=== PATIENT | female | born 1990 | race Caucasian/White ===

== ENCOUNTER 2017-06-23 17:59 | Inpatient (IN) | payer MEDICAID ==
--- NOTE | 2017-06-23 18:47 | HP ---
General Information - General Information Maternal Age: 26 Grav: 1 Para: 0 SAB: 0 IEA: 0 Estimated Due Date: 06/24/17 Determined By: Early Ultrasound Gestational Age in Weeks and Days: 39 Weeks and 6 Days Maternal Blood Type and Rh: O Positive - Results this Serology/RPR Result: Non-Reactive Rubella Result: Immune HBsAg Result: Negative HIV Result: Negative GBS Culture Result: Negative Past Medical History Pertinent Past Medical History: Non-Contributory Past Medical History Comment: hx UTIs Pertinent Past Surgical History: None Family History Comment: high chol., HTN, DVT(no known clotting disorder) - Antepartal Records Antepartal Records: Reviewed, Complicated by: - anemia Exam Allergies/Adverse Reactions: Allergies No Known Allergies Allergy (Verified 06/23/17 18:26) - Measurements Height: 5 ft 2 in Weight: 157 lb Weight in lbs: 157 Body Mass Index (BMI): 28.7 Pre- Weight: 137 lb Weight Gained This : 20 lbs and 0 ozs
[2017-06-23] MEDS ORDERED: Ondansetron ODT TAB* 4 MG PO PRN (20:20)
[2017-06-23 21:15] LABS: Hematocrit 36 % (35-47); Hemoglobin 12.3 g/dl (12.0-16.0); Mean Corpuscular HGB Conc 34 g/dl (31-36); Mean Corpuscular Hemoglobin 31 pg (27-31); Mean Corpuscular Volume 91 fL (80-97); Mean Platelet Volume 9 um3 (7.4-10.4); Platelet Count 209 10^3/ul (150-450); Red Blood Count 3.97 10^6/ul (4.0-5.4); Red Cell Distribution Width 15 % (10.5-15); White Blood Count 26.4 10^3/ul (3.5-10.8)
[2017-06-23 21:22] LABS: ABS Basophils 0.1 10^3/ul (0-0.2); ABS Eosinophils 0 10^3/ul (0-0.6); ABS Lymphocytes 1.7 10^3/ul (1.0-4.8); ABS Monocytes 1.7 10^3/ul (0-0.8); ABS Neutrophils 22.9 10^3/ul (1.5-7.7); ABS Nucleated RBC 0 10^3/ul; Eosinophil % 0 % (0-6); Lymphocyte % 6.5 % (25-47); Nucleated Red Blood Cells % 0.1
[2017-06-23] MEDS ORDERED: Promethazine INJ(RESTRICTED)* 25 MG/ML 1 ML VIAL IV ONE (21:46)
[2017-06-23] MEDS ORDERED: Nalbuphine* 20 MG/ML 1 ML VIAL IV ONE (21:46)
[2017-06-24] MEDS ORDERED: OBEPIDURAL* 250 ML EPIDURAL ONE (05:20)
[2017-06-24] MEDS ORDERED: fentaNYL* 50 MCG/ML 2 ML VIAL (100 MCG VIAL) ONE (05:32)
[2017-06-24] MEDS ORDERED: Famotidine TAB* 20 MG PO PRN (06:14)
[2017-06-24] MEDS ORDERED: Sodium Citrate/Citric Acid* 15 ML UDC PO PRN (06:14)
[2017-06-24] MEDS ORDERED: Phenylephrine IV* 40 MCG/ML 10 ML SYRINGE IV PUSH PRN ×2 (06:14)
[2017-06-24] MEDS ORDERED: OBEPIDURAL* 250 ML EPIDURAL SCH (07:00)
[2017-06-24] MEDS ORDERED: Oxytocin in LR* 20 UNITS/1,000 ML BAG IVPB ONE (07:59)
[2017-06-24] MEDS ORDERED: Misoprostol TAB* 200 MCG PR ONE (09:41)
[2017-06-24] MEDS ORDERED: Glycerin ADULT SUPP PR PRN (09:41)
[2017-06-24] MEDS ORDERED: Oxytocin in LR* 20 UNITS/1,000 ML BAG IVPB SCH (10:00)
[2017-06-24] MEDS: Ibuprofen TAB* 600 MG PO PRN ×3 (10:09→23:57)
[2017-06-24] MEDS ORDERED: Ammonia Inhalant* 1 EA AMP ONE (10:45)
[2017-06-24 13:29] LABS: Urine Appearance Cloudy; Urine Blood 2+ (Negative); Urine Color Yellow; Urine Ketones 2+ (Negative); Urine Protein 1+(30 mg/dL) (Negative); Urine Specific Gravity 1.015 (1.010-1.030); Urine Urobilinogen Negative (Negative)
[2017-06-24] MEDS: Witch Hazel PAD* JAR TOPICAL PRN (14:28)
[2017-06-24] MEDS: Dibucaine 1% 28.35 GM TUBE PR PRN (14:28)
[2017-06-24] MEDS: Docusate CAP* 100 MG PO SCH (14:28)
[2017-06-24] MEDS: Simethicone TAB* 80 MG TAB.CHEW PO SCH (20:11)
[2017-06-24] MEDS: Acetaminophen TAB* 325 MG PO PRN ×2 (20:11→23:57)
[2017-06-25] MEDS: Ibuprofen TAB* 600 MG PO PRN ×3 (06:35→19:09)
[2017-06-25] MEDS: Docusate CAP* 100 MG PO SCH ×2 (06:36→08:49)
[2017-06-25 08:20] LABS: Hematocrit 25 % (35-47); Hemoglobin 8.5 g/dl (12.0-16.0); Mean Corpuscular HGB Conc 34 g/dl (31-36); Mean Corpuscular Hemoglobin 31 pg (27-31); Mean Corpuscular Volume 92 fL (80-97); Mean Platelet Volume 8 um3 (7.4-10.4); Platelet Count 184 10^3/ul (150-450); Red Blood Count 2.71 10^6/ul (4.0-5.4); Red Cell Distribution Width 15 % (10.5-15); White Blood Count 23.4 10^3/ul (3.5-10.8)
[2017-06-25] MEDS: Ferrous Gluconate TAB* 324 MG TAB PO SCH ×2 (08:49→19:08)
[2017-06-25 08:51] LABS: ABS Basophils 0.1 10^3/ul (0-0.2); ABS Eosinophils 0 10^3/ul (0-0.6); ABS Lymphocytes 2.2 10^3/ul (1.0-4.8); ABS Monocytes 1.3 10^3/ul (0-0.8); ABS Neutrophils 19.8 10^3/ul (1.5-7.7)
[2017-06-25 08:56] LABS: Monocytes % 4 % (0-7)
[2017-06-25] MEDS: Acetaminophen TAB* 325 MG PO PRN (10:46)
[2017-06-25] MEDS: Simethicone TAB* 80 MG TAB.CHEW PO SCH (19:09)
[2017-06-26] MEDS: Ibuprofen TAB* 600 MG PO PRN ×2 (04:16→11:36)
[2017-06-26 07:54] VITALS: BP 109/71
[2017-06-26] MEDS: Ferrous Gluconate TAB* 324 MG TAB PO SCH (08:41)
[2017-06-26] MEDS: Docusate CAP* 100 MG PO SCH (08:41)
[2017-06-26] MEDS: Simethicone TAB* 80 MG TAB.CHEW PO SCH (10:40)
[2017-06-26] MEDS: Witch Hazel PAD* JAR TOPICAL PRN (11:36)
[2017-06-26] MEDS: Dibucaine 1% 28.35 GM TUBE PR PRN (11:36)
== END 2017-06-26 16:08 | disposition home or self-care (01) | DRG 560 ==
LOC: MCHOBOUT 17:59 → MCHOB 18:42
PROVIDERS: ADMIT Midwife; ATTEND Midwife
PROC: 10E0XZZ Delivery of Products of Conception, External Approach (ICD-10-PCS; principal; 2017-06-24)
PROC: 10907ZC Drainage of Amniotic Fluid, Therapeutic from Products of Conception, Via Natural or Artificial Opening (ICD-10-PCS; 2017-06-24)
PROC: 0HQ9XZZ Repair Perineum Skin, External Approach (ICD-10-PCS; 2017-06-24)
DX: O77.0 Labor and delivery complicated by meconium in amniotic fluid (principal); D64.9 Anemia, unspecified; O70.0 First degree perineal laceration during delivery; O90.81 Anemia of the puerperium; Z3A.40 40 weeks gestation of pregnancy; Z37.0 Single live birth
CPT/HCPCS: 36415; 81003; 81015; 85025; 86850; 86900; 86901; 87086; A9270-GY; J2300; J2550; J3010

== ENCOUNTER 2023-10-16 05:35 | Inpatient (IN) ==
[2023-10-16] MEDS: Lactated Ringers 1000 ml BAG 1,000 ML IV ONE (06:00)
[2023-10-16] MEDS: Lactated Ringers 1000 ml BAG 1,000 ML IV SCH (06:15)
[2023-10-16] MEDS: Buffered Lidocaine 1% SYRIN 1 ml INTRADERM ONE (06:16)
[2023-10-16 06:29] LABS: Hematocrit 28.8 % (35-45); Hemoglobin 9.3 g/dL (11.5-14.3); Mean Corpuscular Hemoglobin 25.8 pg (27-33); Mean Corpuscular Hgb Conc 32.5 g/dL (31-36); Mean Corpuscular Volume 79.4 fL (80-97); Mean Platelet Volume 8.6 fL (7.5-11.2); Platelet Count 290 10^3/uL (150-450); Red Blood Count 3.62 10^6/uL (3.63-4.92); Red Cell Distribution Width 16.9 % (12-17); White Blood Count 11.3 10^3/uL (3.8-11.8)
[2023-10-16 08:08] LABS: ABS Basophils 0.1 10^3/uL (0.0-0.1); ABS Eosinophils 0.1 10^3/uL (0.0-0.5); ABS Lymphocytes 3.3 10^3/uL (1.0-4.8); ABS Monocytes 0.8 10^3/uL (0.0-0.9); Eosinophil % 0.8 %; Lymphocyte % 29.4 %
[2023-10-16] MEDS ORDERED: Tranexamic Acid 1 GM/100ML BAG 0 MG/0 ML BAG IV ONE (08:56)
[2023-10-16] MEDS ORDERED: Naloxone 0.4 mg VIAL 0.4 mg/ml 1 ml VIAL IV PUSH PRN ×2 (11:08→11:50)
[2023-10-16] MEDS ORDERED: Ondansetron 4 mg VIAL 2 MG/ML 2 ml VIAL IV PRN ×2 (11:08→11:50)
[2023-10-16] MEDS ORDERED: Metoclopramide 5 MG/ML VIAL (10 mg) IV PRN (11:08)
[2023-10-16] MEDS ORDERED: Morphine PF AMP (0.5MG/ML) 5 MG/10 ML AMP ONE (11:37)
[2023-10-16] MEDS ORDERED: Phenylephrine 40 mcg/mL 10mL (400mcg) SYRINGE ONE ×2 (11:38→13:21)
[2023-10-16] MEDS: Sodium Citrate/Citric Acid LIQ 15 ML UDC PO ONE (11:41)
[2023-10-16] MEDS ORDERED: Acetaminophen IV 1 GM/100ML 1,000 MG/100 ML BAG IV PRN (11:50)
[2023-10-16] MEDS ORDERED: Phenylephrine IV 10 MG/ML 1 ml VIAL ONE (13:21)
[2023-10-16] MEDS ORDERED: Ondansetron 4 mg VIAL 2 MG/ML 2 ml VIAL ONE (13:50)
[2023-10-16 13:56] LABS: Urine Appearance Clear; Urine Bilirubin Negative (Negative); Urine Blood Negative (Negative); Urine Color Light-Yellow; Urine Glucose Negative (Negative); Urine Ketones 2+ (Negative); Urine Nitrite Negative (Negative); Urine Protein Negative (Negative); Urine Specific Gravity 1.015 (1.002-1.030); Urine Urobilinogen Negative (Negative); Urine pH 6.5 (5.0-8.0)
[2023-10-16] MEDS ORDERED: Witch Hazel PAD JAR TOPICAL PRN (14:08)
[2023-10-16] MEDS ORDERED: Glycerin ADULT 2.4 gm SUPP PR PRN (14:08)
[2023-10-16] MEDS ORDERED: Dibucaine 1% OINT 28.35 GM TUBE PR PRN (14:08)
[2023-10-16] MEDS: Oxytocin in LR 20,000 MILLI.UNIT/1,000 ML BAG IV SCH (14:39)
[2023-10-16] MEDS: ceFOXitin 2 GM IVPREMIX 2 GM/50 ML BAG IVPB ONE (14:40)
[2023-10-16] MEDS ORDERED: Lactated Ringers 1000 ml BAG 1,000 ML IV SCH (15:00)
[2023-10-16 15:12] LABS: Urine Benzodiazepine Screen None Detected (None Detect); Urine Cannabinoids Screen None Detected (None Detect); Urine Opiates Screen None Detected (None Detect)
[2023-10-16] MEDS: Acetaminophen IV 1 GM/100ML 1,000 MG/100 ML BAG IV PRN (17:23)
[2023-10-17 06:45] LABS: ABS Basophils 0.1 10^3/uL (0.0-0.1); ABS Eosinophils 0.1 10^3/uL (0.0-0.5); ABS Lymphocytes 2.7 10^3/uL (1.0-4.8); ABS Monocytes 0.8 10^3/uL (0.0-0.9); ABS Neutrophils 9.2 10^3/uL (1.5-7.6); Eosinophil % 0.8 %; Hemoglobin 7.2 g/dL (11.5-14.3); Lymphocyte % 20.8 %; Mean Corpuscular Hgb Conc 32.5 g/dL (31-36); Mean Corpuscular Volume 79.8 fL (80-97); Mean Platelet Volume 8.7 fL (7.5-11.2); Platelet Count 235 10^3/uL (150-450); Red Blood Count 2.76 10^6/uL (3.63-4.92); Red Cell Distribution Width 17.1 % (12-17); White Blood Count 12.9 10^3/uL (3.8-11.8)
[2023-10-17 20:03] LABS: Hemoglobin 8.5 g/dL (11.5-14.3); Mean Corpuscular Hemoglobin 26.1 pg (27-33); Mean Corpuscular Hgb Conc 32.6 g/dL (31-36); Mean Platelet Volume 8.7 fL (7.5-11.2); Platelet Count 241 10^3/uL (150-450); Red Blood Count 3.25 10^6/uL (3.63-4.92); Red Cell Distribution Width 16.9 % (12-17); White Blood Count 13.7 10^3/uL (3.8-11.8)
[2023-10-18] MEDS: Iron Sucrose 200 MG in NS 0.9% 100 ml BAG 100 ML IVPB ONE (19:55)
[2023-10-19 08:06] VITALS: BP 113/67
== END 2023-10-19 14:17 | disposition home or self-care (01) | DRG 540 ==
LOC: MCHOB 05:35
PROVIDERS: ADMIT Obstetrics & Gynecology; ATTEND Obstetrics & Gynecology